=== PATIENT | male | born 1965 | race African-American/Black ===

== ENCOUNTER 2018-11-13 15:30 | Inpatient (IN) | payer OTHER, SELFPAY ==
[~2018-11-13] VITALS: Ht 170.2 cm; Wt 82.8 kg
[~2018-11-13 15:30] MED LIST: ASCO500C9 PO; ASPI81TA50 PO; ATOR20TA58 PO; GLYB5TAB3 PO; INSULIN LISPRO 300 UNITS/3 ML INSULN.PEN. SQ SCH; LISI10TA2 PO; LOSA1TAB25 PO; MELO15TA23 PO; METF10007 PO; METO25TA4 PO; NITR0.4T SL; OMEG1CAP38 PO; RANI150T2 PO; TICA90TA PO
--- NOTE | 2018-11-13 15:56 | PHYS DOC ---
Past Medical History Past Medical History: Diabetes-Type II, Hypertension, ID Past Surgical History: Angioplasty, Other Additional Past Surgical Histo: shulder, knee, hernia,CARDAIC STENTS Alcohol Use: None Drug Use: None Adult General Chief Complaint Chief Complaint: CHEST PAIN HPI HPI Patient is a 53 year old male presented to ER today for evaluation of substernal chest pain that been off and on since last Saturday. Jaquelin also complaintS of bilateral flank pain. Patient denies any trouble breathing. Patient has history of hypertension, diabetic, coronary artery disease. Patient had several CARDIAC stentS placed last year. Patient denies any recent operation or any recent travel. She denies any fever, no nausea vomiting. Review of Systems Review of Systems Constitutional: Denies fever or chills [] Eyes: Denies change in visual acuity, redness, or eye pain [] HENT: Denies nasal congestion or sore throat [] Respiratory: Denies cough or shortness of breath [] Cardiovascular: No additional information not addressed in HPI [] GI: POSITIVE FOR abdominal pain, NO nausea, vomiting, bloody stools or diarrhea [] : Denies dysuria or hematuria [] Musculoskeletal: Denies back pain or joint pain [] Integument: Denies rash or skin lesions [] Neurologic: Denies headache, focal weakness or sensory changes [] Endocrine: Denies polyuria or polydipsia [] All other systems were reviewed and found to be within normal limits, except as documented in this note. Current Medications Current Medications Current Medications Medications (Trade) Dose Ordered Sig/[facility] Start Time Stop Time Status Last Admin Dose Admin Aspirin (Marj Aspirin) 325 mg 1X ONCE 11/13/18 16:00 11/13/18 16:01 DC 11/13/18 16:08 325 MG Nitroglycerin (Nitrostat) 0.4 mg PRN Q5MIN PRN 11/13/18 16:00 11/14/18 15:59 Allergies Allergies Allergies Coded Allergies Type Severity Reaction Last Updated Verified iodine Allergy Intermediate Rash 12/07/17 Yes povidone-iodine Allergy Intermediate Rash 12/14/17 Yes Physical Exam Physical Exam Constitutional: Well developed, well nourished, no acute distress, non-toxic appearance. [] HENT: Normocephalic, atraumatic, bilateral external ears normal, oropharynx moist, no oral exudates, nose normal. [] Eyes: PERRLA, EOMI, conjunctiva normal, no discharge. [] Neck: Normal range of motion, no tenderness, supple, no stridor. [] Cardiovascular:Heart rate regular rhythm, no murmur [] Lungs & Thorax: Bilateral breath sounds clear to auscultation [] Abdomen: Bowel sounds normal, soft, no tenderness, no masses, no pulsatile masses. [] Skin: Warm, dry, no erythema, no rash. [] Back: No tenderness, no CVA tenderness. [] Extremities: No tenderness, no cyanosis, no clubbing, ROM intact, no edema. [] Neurologic: Alert and oriented X 3, normal motor function, normal sensory function, no focal deficits noted. [] Psychologic: Affect normal, judgement normal, mood normal. [] Current Patient Data Vital Signs Vital Signs Date Time Temp Pulse Resp B/P (MAP) Pulse Ox O2 Delivery O2 Flow Rate FiO2 11/13/18 15:35 99.0 77 16 215/92 (133) 97 Room Air 99.0 Lab Values Laboratory Tests Test 11/13/18 15:48 11/13/18 15:50 White Blood Count 7.8 x10^3/uL (4.0-11.0) Red Blood Count 4.28 x10^6/uL (4.30-5.70) L Hemoglobin 12.7 g/dL (13.0-17.5) L Hematocrit 38.0 % (39.0-53.0) L Mean Corpuscular Volume 89 fL (79-100) Mean Corpuscular Hemoglobin 30 pg (25-35) Mean Corpuscular Hemoglobin Concent 34 g/dL (31-37) Red Cell Distribution Width 13.1 % (11.5-14.5) Platelet Count 239 x10^3/uL (140-400) Neutrophils (%) (Auto) 70 % (31-73) Lymphocytes (%) (Auto) 18 % (24-48) L Monocytes (%) (Auto) 8 % (0-9) Eosinophils (%) (Auto) 3 % (0-3) Basophils (%) (Auto) 1 % (0-3) Neutrophils # (Auto) 5.5 x10^3uL (1.8-7.7) Lymphocytes # (Auto) 1.4 x10^3/uL (1.0-4.8) Monocytes # (Auto) 0.6 x10^3/uL (0.0-1.1) Eosinophils # (Auto) 0.2 x10^3/uL (0.0-0.7) Basophils # (Auto) 0.1 x10^3/uL (0.0-0.2) Prothrombin Time 12.2 SEC (11.7-14.0) Prothrombin Time INR 0.9 (0.8-1.1) Sodium Level 138 mmol/L (136-145) Potassium Level 4.3 mmol/L (3.5-5.1) Chloride Level 103 mmol/L (98-107) Carbon Dioxide Level 24 mmol/L (21-32) Anion Gap 11 (6-14) Blood Urea Nitrogen 27 mg/dL (8-26) H Creatinine 1.5 mg/dL (0.7-1.3) H Estimated GFR ([place]-Gault) 58.8 BUN/Creatinine Ratio 18 (6-20) Glucose Level 190 mg/dL (70-99) H Calcium Level 10.2 mg/dL (8.5-10.1) H Magnesium Level 1.8 mg/dL (1.8-2.4) Total Bilirubin 0.3 mg/dL (0.2-1.0) Aspartate Amino Transferase (AST) 22 U/L (15-37) Alanine Aminotransferase (ALT) 23 U/L (16-63) Alkaline Phosphatase 72 U/L (46-116) Creatine Kinase 383 U/L (39-308) H Creatine Kinase MB (Mass) 1.9 ng/mL (0.0-3.6) Creatine Kinase MB Relative Index 0.5 % (0-4) Troponin I Quantitative 0.036 ng/mL (0.000-0.055) AP-Txl-P-Type Natriuretic Peptide 172 pg/mL (0-124) H Total Protein 8.2 g/dL (6.4-8.2) Albumin 4.2 g/dL (3.4-5.0) Albumin/Globulin Ratio 1.1 (1.0-1.7) Lipase 716 U/L (73-393) H Urine Collection Type Void Urine Color Yellow Urine Clarity Clear Urine pH 5.5 Urine Specific [place] 1.010 Urine Protein Negative mg/dL (NEG-TRACE) Urine Glucose (UA) Negative mg/dL (NEG) Urine Ketones (Stick) Negative mg/dL (NEG) Urine Blood Negative (NEG) Urine Nitrite Negative (NEG) Urine Bilirubin Negative (NEG) Urine Urobilinogen Dipstick 0.2 mg/dL (0.2 mg/dL) Urine Leukocyte Esterase Negative (NEG) Urine RBC Rare /HPF (0-2) Urine WBC 0 /HPF (0-4) Urine Squamous Epithelial Cells Few /LPF Urine Bacteria 0 /HPF (0-FEW) Laboratory Tests 11/13/18 15:48 Laboratory Tests 11/13/18 15:48 EKG EKG EKG WAS READ BY THIS PHYSICIAN AT 1540, RATE OF 72 BPM, NO STEMI. SINUS RHYTHM. [] Radiology/Procedures Radiology/Procedures [] Impressions: [address] [address] IMAGING REPORT Signed PATIENT: CLAUDIA SCHULTE ACCOUNT: [id number] : 1965 LOCATION: ER AGE: 53 SEX: M EXAM STATUS: PRE ER ORD. PHYSICIAN: HOMA LEBRON DO REASON: LEFT SIDED CHEST PAIN SINCE SUN., HX HTN, ID, DIABETES PROCEDURE: PORTABLE CHEST 1V Portable chest, 11/13/2018: HISTORY: Left-sided chest pain Comparison is made to a study from 12/13/2017. The heart size and pulmonary vascularity are normal. No pulmonary infiltrate is seen. There is no evidence of pleural fluid. IMPRESSION: No acute cardiopulmonary abnormality is detected. Electronically signed by: Bebo Connelly MD (11/13/2018 4:14 PM) [facility] DICTATED and SIGNED BY: BEBO CONNELLY MD DATE: 11/13/[address] [address] IMAGING REPORT Signed PATIENT: CLAUDIA SCHULTE ACCOUNT: [id number] : 1965 LOCATION: ER AGE: 53 SEX: M EXAM STATUS: REG ER ORD. PHYSICIAN: HOMA LEBRON DO REASON: ABDOMINAL PAIN bilateral flank pain PROCEDURE: CT ABDOMEN PELVIS WO CONTRAST EXAM: Abdomen and pelvis CT without intravenous contrast. HISTORY: Flank pain. TECHNIQUE: Computed tomographic images of the abdomen and pelvis were obtained without contrast. Multiplanar reformatting was performed. *One or more of the following individualized dose reduction techniques were utilized for this examination: 1. Automated exposure control. 2. Adjustment of the mA and/or kV according to patient size. 3. Use of iterative reconstruction technique. COMPARISON: None. FINDINGS: Evaluation of the lower thorax demonstrates no infiltrate or pleural effusion. The heart is normal in size. There is coronary artery atherosclerosis. No hepatic lesion is seen. The gallbladder, pancreas and adrenal glands are unremarkable. The spleen is upper normal in size, within normal limits for body habitus. There is no evidence of nephroureterolithiasis. There is no evidence of hydronephrosis. There are multiple hypodense lesions within both kidneys which are too small to characterize in the absence of contrast. The attenuation of the largest lesion measuring 1.8 cm within the right kidney favors a cyst. There is no appendicitis. There is moderate colonic stool. There is colonic diverticulosis. There is no diverticulitis. The bladder is unremarkable. The prostate is unremarkable. There is aortobiiliac atherosclerosis. There is no lymphadenopathy. There is degenerative change involving the spine. No suspicious osseous lesion is seen. IMPRESSION: 1. No acute abdominal or pelvic finding. 2. No evidence of nephrolithiasis or obstructive uropathy. 3. Hypodense lesions within both kidneys, the largest of which are likely cysts and the small cyst of which are too small to characterize in the absence of contrast. Renal sonography may be useful for characterization. 4. Colonic diverticulosis. Electronically signed by: Almita Abel MD (11/13/2018 5:32 PM) [facility] DICTATED and SIGNED BY: ALMITA ABEL MD DATE: 11/13/18 4438 Course & Med Decision Making Course & Med Decision Making Pertinent Labs and Imaging studies reviewed. (See chart for details) [] Dragon Disclaimer Dragon Disclaimer This electronic medical record was generated, in whole or in part, using a voice recognition dictation system. Departure Departure Impression: Primary Impression: Chest pain Disposition: ADMITTED INPATIENT Admitting Physician: Swetha Bergeron Condition: STABLE Referrals: OLIVA NOBLE MD (PCP) HOMA LEBRON DO November 13, 2018 15:56
[2018-11-13] MEDS ORDERED: ASPIRIN 325 MG TABLET PO ONE (16:00)
[2018-11-13] MEDS ORDERED: NITROGLYCERIN SUBLINGUAL 0.4 MG BOTTLE OF 25. SL PRN ×2 (16:00→21:00)
--- NOTE | 2018-11-13 16:02 | EKG ---
[facility] [address] [place] [address] Test Date: 2018-11-13 Test Time: 15:38:49 Pat Name: CLAUDIA SCHULTE Department: Room: Gender: M Manager Economic: : 1965 Requested By: HOMA LEBRON Order Number: [id number] Reading MD: Damián Salinas Measurements Intervals [place] Rate: 72 P: 29 MT: 180 QRS: -23 QRSD: 82 T: -29 QT: 336 QTc: 373 Interpretive Statements SINUS RHYTHM LEFT ATRIAL ABNORMALITY LEFTWARD AXIS T ABNORMALITY IN ANTEROLATERAL LEADS INFEROLATERAL LEADS ABNORMAL ECG Electronically Signed On 12-11-2018 13:14:04 CDT by Damián Salinas
[2018-11-13 16:03] LABS: BASO # 0.1 x10^3/uL (0.0-0.2); BASO % 1 % (0-3); EOS # 0.2 x10^3/uL (0.0-0.7); EOS % 3 % (0-3); HEMOGLOBIN 12.7 g/dL (13.0-17.5); LYMPH # 1.4 x10^3/uL (1.0-4.8); LYMPH % 18 % (24-48); MEAN CORPUSCULAR HEMOGLOBIN 30 pg (25-35); MEAN CORPUSCULAR HGB CONC 34 g/dL (31-37); MEAN CORPUSCULAR VOLUME 89 fL (79-100); MONO # 0.6 x10^3/uL (0.0-1.1); MONO % 8 % (0-9); NEUT # 5.5 x10^3uL (1.8-7.7); NEUT % 70 % (31-73); PLATELET COUNT 239 x10^3/uL (140-400); RED BLOOD COUNT 4.28 x10^6/uL (4.30-5.70); RED CELL DISTRIBUTION WIDTH 13.1 % (11.5-14.5); WHITE BLOOD COUNT 7.8 x10^3/uL (4.0-11.0)
[2018-11-13 16:14] LABS: PROTHROMBIN TIME PATIENT 12.2 SEC (11.7-14.0)
--- NOTE | 2018-11-13 16:16 | RAD ---
Portable chest, 11/13/2018: HISTORY: Left-sided chest pain Comparison is made to a study from 12/13/2017. The heart size and pulmonary vascularity are normal. No pulmonary infiltrate is seen. There is no evidence of pleural fluid. IMPRESSION: No acute cardiopulmonary abnormality is detected. Electronically signed by: Bebo Connelly MD (11/13/2018 4:14 PM) [facility]
[2018-11-13 16:19] LABS: CALCIUM 10.2 mg/dL (8.5-10.1); CREATININE 1.5 mg/dL (0.7-1.3); GFR 58.8; POTASSIUM 4.3 mmol/L (3.5-5.1)
[2018-11-13 16:23] LABS: BILIRUBIN,URINE NEGATIVE (NEG); CLARITY,URINE CLEAR; COLOR,URINE YELLOW; NITRITE,URINE NEGATIVE (NEG); PH,URINE 5.5; PROTEIN,URINE NEGATIVE (NEG-TRACE); UROBILINOGEN,URINE 0.2 mg/dL (0.2 mg/dL)
[2018-11-13 16:26] LABS: ALBUMIN 4.2 g/dL (3.4-5.0); ALBUMIN/GLOBULIN RATIO 1.1 (1.0-1.7); MAGNESIUM 1.8 mg/dL (1.8-2.4); TOTAL BILIRUBIN 0.3 mg/dL (0.2-1.0); TOTAL PROTEIN 8.2 g/dL (6.4-8.2)
[2018-11-13 16:32] LABS: RBC,URINE RARE /HPF (0-2); WBC,URINE 0 /HPF (0-4)
[2018-11-13 16:33] LABS: BACTERIA,URINE 0 /HPF (0-FEW); SQUAMOUS EPITHELIAL CELL,UR FEW /LPF
--- NOTE | 2018-11-13 17:35 | RAD ---
EXAM: Abdomen and pelvis CT without intravenous contrast. HISTORY: Flank pain. TECHNIQUE: Computed tomographic images of the abdomen and pelvis were obtained without contrast. Multiplanar reformatting was performed. *One or more of the following individualized dose reduction techniques were utilized for this examination: 1. Automated exposure control. 2. Adjustment of the mA and/or kV according to patient size. 3. Use of iterative reconstruction technique. COMPARISON: None. FINDINGS: Evaluation of the lower thorax demonstrates no infiltrate or pleural effusion. The heart is normal in size. There is coronary artery atherosclerosis. No hepatic lesion is seen. The gallbladder, pancreas and adrenal glands are unremarkable. The spleen is upper normal in size, within normal limits for body habitus. There is no evidence of nephroureterolithiasis. There is no evidence of hydronephrosis. There are multiple hypodense lesions within both kidneys which are too small to characterize in the absence of contrast. The attenuation of the largest lesion measuring 1.8 cm within the right kidney favors a cyst. There is no appendicitis. There is moderate colonic stool. There is colonic diverticulosis. There is no diverticulitis. The bladder is unremarkable. The prostate is unremarkable. There is aortobiiliac atherosclerosis. There is no lymphadenopathy. There is degenerative change involving the spine. No suspicious osseous lesion is seen. IMPRESSION: 1. No acute abdominal or pelvic finding. 2. No evidence of nephrolithiasis or obstructive uropathy. 3. Hypodense lesions within both kidneys, the largest of which are likely cysts and the small cyst of which are too small to characterize in the absence of contrast. Renal sonography may be useful for characterization. 4. Colonic diverticulosis. Electronically signed by: Almita Lake MD (11/13/2018 5:32 PM) [facility]
[2018-11-13] MEDS ORDERED: ONDANSETRON PF 4 MG/2 ML VIAL. IV PRN (17:45)
--- NOTE | 2018-11-13 19:01 | PDOC1 ---
History and Physical Date of Admission: Date of Admission DATE: 11/13/18 TIME: 18:59 Chief Complaint: Problems: (1) Coronary artery disease (2) PAD (peripheral artery disease) (3) Chest pain Chief Complain: Chest pain History of Present Illness: HPI: Patient is a pleasant middle-aged male who has 5 previous coronary stents He presents with chest pain he states it feels like his previous coronary pain Rates that 10 out 10 Has some associated nausea Spell occurring since last week He tried increasing his home meds but that didn't work Describes as agonizing I discussed the case with ER physician wanted with patient and consult cardiology Past Medical/Surgical History: PMH/PSH: Diabetes hypertension 5 previous coronary stents Allergies: Allergies: Coded Allergies: iodine (Verified Allergy, Intermediate, Rash, 12/07/17) topical iodine only povidone-iodine (Verified Allergy, Intermediate, Rash, 12/14/17) topical iodine only Family History: Family History: CAD Social History: Social Hisoty: He doesn't drink smoke or take drugs he is Current Medications: Current Medications Current Medications Aspirin (Marj Aspirin) 325 mg 1X ONCE PO Last administered on 11/13/18at 16:08; Start 11/13/18 at 16:00; Stop 11/13/18 at 16:01; Status DC Nitroglycerin (Nitrostat) 0.4 mg PRN Q5MIN PRN SL CP RATING > 1/10; Start 11/13/18 at 16:00; Stop 11/14/18 at 15:59 Ondansetron HCl (Zofran) 4 mg PRN Q8HRS PRN IV NAUSEA/VOMITING; Start 11/13/18 at 17:45; Stop 11/14/18 at 17:44 Active Scripts Active Lisinopril 10 Mg Tablet 10 Mg PO DAILY 30 Days Metoprolol Tartrate 25 Mg Tablet 25 Mg PO BID 30 Days Nitrostat (Nitroglycerin) 0.4 Mg Tab.subl 0.4 Mg SL PRN Q5MIN PRN 30 Days Atorvastatin Calcium 20 Mg Tablet 20 Mg PO QHS 30 Days Brilinta (Ticagrelor) 90 Mg Tablet 90 Mg PO BID 30 Days Reported Vitamin C (Ascorbic Acid) 500 Mg Capsule 500 Mg PO [place] 3 Fish Oil Softgel ([place]-3 Fatty Acids/Fish Oil) 1 Each Capsule.dr 1 Each PO DAILY Metformin Hcl 1,000 Mg Tablet 1,000 Mg PO BIDWMEALS Aspir-Low (Aspirin) 81 Mg Tablet. 1 Tab PO DAILY Glyburide 5 Mg Tablet 5 Mg PO DAILY Ranitidine Hcl 150 Mg Tablet 150 Mg PO DAILY ROS: Review of Systems Review of System REVIEW OF SYSTEMS: GENERAL: Denies weakness SKIN: No bruising, hair changes or rashes. EYES: No blurred, double or loss of vision. NOSE AND THROAT: No history of nosebleeds, hoarseness or sore throat. HEART: He complains of chest pain LUNGS: Denies cough, hemoptysis, wheezing or shortness of breath. GASTROINTESTINAL: He complains of abdominal pain GENITOURINARY: No history of frequency, urgency, hesitancy or nocturia. NEUROLOGIC: Denies history of numbness, tingling, tremor or weakness. PSYCHIATRIC: No history of panic, anxiety or depression. ENDOCRINE: No history of heat or cold intolerance, polyuria or polydipsia. EXTREMITIES: Denies muscle weakness, joint pain, pain on walking or stiffness. Physical Exam: Vital Signs: Vital Signs Date Time Temp Pulse Resp B/P (MAP) Pulse Ox O2 Delivery O2 Flow Rate FiO2 11/13/18 17:09 74 24 157/77 (103) 98 Room Air 11/13/18 15:35 99.0 99.0 Physcial Exam: GEN.: No apparent distress. Alert and oriented. HEENT: Head is normocephalic, atraumatic NECK: Supple, no JVD LUNGS: Clear to auscultation without rhonchi or wheezing HEART: RRR, S1, S2 present. Peripheral pulses intact ABDOMEN: Soft, nontender. Positive bowel sounds no organomegaly EXTREMITIES: Without any cyanosis, clubbing, or edema. Pedal pulses intact NEUROLOGIC: Normal speech, normal tone. A&O x 3 PSYCHIATRIC: Normal affect, normal mood. Stable SKIN: No ulcerations or rashes VASCULAR: Good capillary refill Labs: Labs: Laboratory Tests Test 11/13/18 15:48 11/13/18 15:50 White Blood Count 7.8 x10^3/uL (4.0-11.0) Red Blood Count 4.28 x10^6/uL (4.30-5.70) Hemoglobin 12.7 g/dL (13.0-17.5) Hematocrit 38.0 % (39.0-53.0) Mean Corpuscular Volume 89 fL (79-100) Mean Corpuscular Hemoglobin 30 pg (25-35) Mean Corpuscular Hemoglobin Concent 34 g/dL (31-37) Red Cell Distribution Width 13.1 % (11.5-14.5) Platelet Count 239 x10^3/uL (140-400) Neutrophils (%) (Auto) 70 % (31-73) Lymphocytes (%) (Auto) 18 % (24-48) Monocytes (%) (Auto) 8 % (0-9) Eosinophils (%) (Auto) 3 % (0-3) Basophils (%) (Auto) 1 % (0-3) Neutrophils # (Auto) 5.5 x10^3uL (1.8-7.7) Lymphocytes # (Auto) 1.4 x10^3/uL (1.0-4.8) Monocytes # (Auto) 0.6 x10^3/uL (0.0-1.1) Eosinophils # (Auto) 0.2 x10^3/uL (0.0-0.7) Basophils # (Auto) 0.1 x10^3/uL (0.0-0.2) Prothrombin Time 12.2 SEC (11.7-14.0) Prothromb Time International Ratio 0.9 (0.8-1.1) Sodium Level 138 mmol/L (136-145) Potassium Level 4.3 mmol/L (3.5-5.1) Chloride Level 103 mmol/L (98-107) Carbon Dioxide Level 24 mmol/L (21-32) Anion Gap 11 (6-14) Blood Urea Nitrogen 27 mg/dL (8-26) Creatinine 1.5 mg/dL (0.7-1.3) Estimated GFR (Cockcroft-Gault) 58.8 BUN/Creatinine Ratio 18 (6-20) Glucose Level 190 mg/dL (70-99) Calcium Level 10.2 mg/dL (8.5-10.1) Magnesium Level 1.8 mg/dL (1.8-2.4) Total Bilirubin 0.3 mg/dL (0.2-1.0) Aspartate Amino Transf (AST/SGOT) 22 U/L (15-37) Alanine Aminotransferase (ALT/SGPT) 23 U/L (16-63) Alkaline Phosphatase 72 U/L (46-116) Creatine Kinase 383 U/L (39-308) Creatine Kinase MB (Mass) 1.9 ng/mL (0.0-3.6) Creatine Kinase MB Relative Index 0.5 % (0-4) Troponin I Quantitative 0.036 ng/mL (0.000-0.055) GG-Iez-L-Type Natriuretic Peptide 172 pg/mL (0-124) Total Protein 8.2 g/dL (6.4-8.2) Albumin 4.2 g/dL (3.4-5.0) Albumin/Globulin Ratio 1.1 (1.0-1.7) Lipase 716 U/L (73-393) Urine Collection Type Void Urine Color Yellow Urine Clarity Clear Urine pH 5.5 Urine Specific [place] 1.010 Urine Protein Negative mg/dL (NEG-TRACE) Urine Glucose (UA) Negative mg/dL (NEG) Urine Ketones (Stick) Negative mg/dL (NEG) Urine Blood Negative (NEG) Urine Nitrite Negative (NEG) Urine Bilirubin Negative (NEG) Urine Urobilinogen Dipstick 0.2 mg/dL (0.2 mg/dL) Urine Leukocyte Esterase Negative (NEG) Urine RBC Rare /HPF (0-2) Urine WBC 0 /HPF (0-4) Urine Squamous Epithelial Cells Few /LPF Urine Bacteria 0 /HPF (0-FEW) Laboratory Tests Test 11/13/18 15:48 11/13/18 15:50 White Blood Count 7.8 x10^3/uL (4.0-11.0) Red Blood Count 4.28 x10^6/uL (4.30-5.70) Hemoglobin 12.7 g/dL (13.0-17.5) Hematocrit 38.0 % (39.0-53.0) Mean Corpuscular Volume 89 fL (79-100) Mean Corpuscular Hemoglobin 30 pg (25-35) Mean Corpuscular Hemoglobin Concent 34 g/dL (31-37) Red Cell Distribution Width 13.1 % (11.5-14.5) Platelet Count 239 x10^3/uL (140-400) Neutrophils (%) (Auto) 70 % (31-73) Lymphocytes (%) (Auto) 18 % (24-48) Monocytes (%) (Auto) 8 % (0-9) Eosinophils (%) (Auto) 3 % (0-3) Basophils (%) (Auto) 1 % (0-3) Neutrophils # (Auto) 5.5 x10^3uL (1.8-7.7) Lymphocytes # (Auto) 1.4 x10^3/uL (1.0-4.8) Monocytes # (Auto) 0.6 x10^3/uL (0.0-1.1) Eosinophils # (Auto) 0.2 x10^3/uL (0.0-0.7) Basophils # (Auto) 0.1 x10^3/uL (0.0-0.2) Prothrombin Time 12.2 SEC (11.7-14.0) Prothromb Time International Ratio 0.9 (0.8-1.1) Sodium Level 138 mmol/L (136-145) Potassium Level 4.3 mmol/L (3.5-5.1) Chloride Level 103 mmol/L (98-107) Carbon Dioxide Level 24 mmol/L (21-32) Anion Gap 11 (6-14) Blood Urea Nitrogen 27 mg/dL (8-26) Creatinine 1.5 mg/dL (0.7-1.3) Estimated GFR (Cockcroft-Gault) 58.8 BUN/Creatinine Ratio 18 (6-20) Glucose Level 190 mg/dL (70-99) Calcium Level 10.2 mg/dL (8.5-10.1) Magnesium Level 1.8 mg/dL (1.8-2.4) Total Bilirubin 0.3 mg/dL (0.2-1.0) Aspartate Amino Transf (AST/SGOT) 22 U/L (15-37) Alanine Aminotransferase (ALT/SGPT) 23 U/L (16-63) Alkaline Phosphatase 72 U/L (46-116) Creatine Kinase 383 U/L (39-308) Creatine Kinase MB (Mass) 1.9 ng/mL (0.0-3.6) Creatine Kinase MB Relative Index 0.5 % (0-4) Troponin I Quantitative 0.036 ng/mL (0.000-0.055) YC-Ifk-D-Type Natriuretic Peptide 172 pg/mL (0-124) Total Protein 8.2 g/dL (6.4-8.2) Albumin 4.2 g/dL (3.4-5.0) Albumin/Globulin Ratio 1.1 (1.0-1.7) Lipase 716 U/L (73-393) Urine Collection Type Void Urine Color Yellow Urine Clarity Clear Urine pH 5.5 Urine Specific [place] 1.010 Urine Protein Negative mg/dL (NEG-TRACE) Urine Glucose (UA) Negative mg/dL (NEG) Urine Ketones (Stick) Negative mg/dL (NEG) Urine Blood Negative (NEG) Urine Nitrite Negative (NEG) Urine Bilirubin Negative (NEG) Urine Urobilinogen Dipstick 0.2 mg/dL (0.2 mg/dL) Urine Leukocyte Esterase Negative (NEG) Urine RBC Rare /HPF (0-2) Urine WBC 0 /HPF (0-4) Urine Squamous Epithelial Cells Few /LPF Urine Bacteria 0 /HPF (0-FEW) Images: Images Portable chest, 11/13/2018: HISTORY: Left-sided chest pain Comparison is made to a study from 12/13/2017. The heart size and pulmonary vascularity are normal. No pulmonary infiltrate is seen. There is no evidence of pleural fluid. IMPRESSION: No acute cardiopulmonary abnormality is detected. Assessment/Plan Assessment/Plan Chest pain in a middle-aged male who has known coronary disease suspect possible recurrent acute coronary event Plan Cardiac monitoring consult cardiology Serial enzymes Serial EKGs Daily aspirin Home meds Frequent labs DVT prophylaxis Full code Prognosis guarded MAGDA QUEZADA III DO November 13, 2018 19:01
--- NOTE | 2018-11-13 19:15 | NUR ---
The patient, CLAUDIA SCHULTE, 53 y/o, M admitted by MAGDA QUEZADA III, DO, was given written information regarding hospital policies, unit procedures and contact persons. ORIENTED PT AND TO UNIT, C[employer]ICE REPRESENTATIVE [employer], POC, VITAL TIMES. HAD HOME MEDS IN HER PHONE RECONCILED MEDS AND DR QUEZADA APPROVED. Valuables were checked and DOCUMENTED IN [facility] .LCRN
[2018-11-13 19:18] VITALS: BP 179/81
[2018-11-13] MEDS ORDERED: GABA-585 PO (20:30)
[2018-11-13] MEDS ORDERED: LOSA100T14 PO (20:32)
[2018-11-13] MEDS ORDERED: GLYB5TAB3 PO (20:33)
[2018-11-13] MEDS ORDERED: ACET325T9 PO (20:35)
[2018-11-13] MEDS ORDERED: ACETAMINOPHEN 325 MG TABLET. PO PRN (21:00)
[2018-11-13] MEDS ORDERED: DEXTROSE 50% 25 GM / 50ML DISP.SYRIN. IV PRN (21:00)
[2018-11-13] MEDS: TICAGRELOR 90 MG TABLET. PO SCH (22:08)
[2018-11-13] MEDS: METOPROLOL TART IMMED RELEASE 25 MG TABLET. PO SCH (22:09)
[2018-11-13] MEDS: GABAPENTIN 100 MG CAPSULE. PO SCH (22:09)
[2018-11-13 23:16] VITALS: BP 148/80
[2018-11-14 03:25] VITALS: BP 152/86
[2018-11-14] MEDS ORDERED: ACETAMINOPHEN 325 MG TABLET. PO PRN (03:30)
[2018-11-14 07:00] VITALS: BP 138/80
[2018-11-14] MEDS: INSULIN LISPRO 300 UNITS/3 ML INSULN.PEN. SQ SCH ×2 (07:30→11:30)
[2018-11-14] MEDS ORDERED: glyBURIDE 5 MG TABLET PO SCH (07:30)
[2018-11-14] MEDS ORDERED: metFORMIN 500 MG TABLET PO SCH (08:00)
[2018-11-14] MEDS ORDERED: INSULIN LISPRO 300 UNITS/3 ML INSULN.PEN. SQ SCH (08:00)
[2018-11-14] MEDS ORDERED: FAMOTIDINE 20 MG TABLET. PO SCH (09:00)
[2018-11-14] MEDS ORDERED: ASPIRIN ENTERIC COATED 81 MG TABLET.DR. PO SCH (09:00)
[2018-11-14] MEDS ORDERED: LOSARTAN POTASSIUM 50 MG TABLET. PO SCH (09:00)
--- NOTE | 2018-11-14 09:35 | PDOC2 ---
JETHRO LAGOS SPECIAL INVESTIGATION UNIT INVESTIGATOR 11/14/18 0935: CARDIAC CONSULT DATE OF CONSULT Date of Consult DATE: 11/14/18 TIME: 08:53 REASON FOR CONSULT Reason for Consult: Chest pain REFERRING PHYSICIAN Referring Physician: Jesse SOURCE Source: Chart review, Patient HISTORY OF PRESENT ILLNESS HISTORY OF PRESENT ILLNESS This is a pleasant 53 yo male admitted for complains of chest pain and left flank pain. Reports that in the last 2 days he has been having left chest dull achy pain which is relieved sometimes with rubbing. Rate it 7 at 0-10 scale at times. No associated SOA, palpitations, nausea, diaphoresis. No VELAZQUEZ nor exertional CP. He does however has some bilateral shoulder problems requiring surgical repair in the past. No known cervical issues. No falls, injury, or MVA. Hhe has been having left flank pain to which the CT did not show any acute changes. Both the chest and the lower back pain are reproducible with palpation and for his left shoulder as well with ROM. PAST MEDICAL HISTORY Past Medical History Cardiovascular: CAD, HTN, OR, Hyperlipidemia Pulmonary: No pertinent hx CENTRAL NERVOUS SYSTEM: Other (No pertinent history) GI: GERD Heme/Onc: No pertinent hx Musculoskeletal: Osteoarthritis Rheumatologic: No pertinent hx Infectious disease: No pertinent hx ENT: No pertinent hx Renal/: No pertinent hx Endocrine: Diabetes Dermatology: No pertinent hx PAST SURGICAL HISTORY Past Surgical History Arthroscopy (bilateral clavicle repair and knee meniscus repair), Hernia Repair (umbilical wih mesh), Other (PCI/stents), LLE open revascularization 01/2018 FAMILY HISTORY Family History: Hypertension SOCIAL HISTORY Smoke: No ALCOHOL: occassional Drugs: None Lives: with Family CURRENT MEDICATIONS CURRENT MEDICATIONS Current Medications Medications (Trade) Dose Ordered Sig/Neeta Route PRN Reason Start Time Stop Time Status Last Admin Dose Admin Aspirin (Marj Aspirin) 325 mg 1X ONCE PO 11/13/18 16:00 11/13/18 16:01 DC 11/13/18 16:08 Acetaminophen (Tylenol) 325 mg PRN Q6HRS PRN PO MILD PAIN 11/13/18 21:00 11/14/18 03:25 DC 11/14/18 03:21 Gabapentin (Neurontin) 100 mg TID PO 11/13/18 21:00 11/13/18 22:09 Metoprolol Tartrate (Lopressor) 25 mg BID PO 11/13/18 21:00 11/13/18 22:09 Ticagrelor (Brilinta) 90 mg BID PO 11/13/18 21:00 11/13/18 22:08 ALLERGIES ALLERGIES: Coded Allergies: iodine (Verified Allergy, Intermediate, Rash, 12/07/17) topical iodine only povidone-iodine (Verified Allergy, Intermediate, Rash, 12/14/17) topical iodine only ROS Review of System 14 point ROS evaluated with pertinent positives noted per HPI PHYSICAL EXAM General: Alert, Oriented X3, Cooperative, No acute distress HEENT: Atraumatic, Mucous membr. moist/pink Lungs: Clear to auscultation, Normal air movement Heart: Regular rate (SR), Normal S1, Normal S2, No murmurs Abdomen: Soft, No tenderness Extremities: No cyanosis, No edema Skin: No breakdown, No significant lesion Neuro: Normal speech, Sensation intact Psych/Mental Status: Mental status NL, Mood NL MUSCULOSKELETAL: Osteoarthritic changes both hands VITALS VITALS Vital Signs Date Time Temp Pulse Resp B/P (MAP) Pulse Ox O2 Delivery O2 Flow Rate FiO2 11/14/18 08:13 Room Air 11/14/18 07:00 98.5 70 18 138/80 (99) 95 98.5 LABS Lab: Laboratory Tests Test 11/13/18 15:48 11/13/18 15:50 11/13/18 21:12 11/14/18 07:07 White Blood Count 7.8 x10^3/uL (4.0-11.0) Red Blood Count 4.28 x10^6/uL (4.30-5.70) Hemoglobin 12.7 g/dL (13.0-17.5) Hematocrit 38.0 % (39.0-53.0) Mean Corpuscular Volume 89 fL (79-100) Mean Corpuscular Hemoglobin 30 pg (25-35) Mean Corpuscular Hemoglobin Concent 34 g/dL (31-37) Red Cell Distribution Width 13.1 % (11.5-14.5) Platelet Count 239 x10^3/uL (140-400) Neutrophils (%) (Auto) 70 % (31-73) Lymphocytes (%) (Auto) 18 % (24-48) Monocytes (%) (Auto) 8 % (0-9) Eosinophils (%) (Auto) 3 % (0-3) Basophils (%) (Auto) 1 % (0-3) Neutrophils # (Auto) 5.5 x10^3uL (1.8-7.7) Lymphocytes # (Auto) 1.4 x10^3/uL (1.0-4.8) Monocytes # (Auto) 0.6 x10^3/uL (0.0-1.1) Eosinophils # (Auto) 0.2 x10^3/uL (0.0-0.7) Basophils # (Auto) 0.1 x10^3/uL (0.0-0.2) Prothrombin Time 12.2 SEC (11.7-14.0) Prothromb Time International Ratio 0.9 (0.8-1.1) Sodium Level 138 mmol/L (136-145) Potassium Level 4.3 mmol/L (3.5-5.1) Chloride Level 103 mmol/L (98-107) Carbon Dioxide Level 24 mmol/L (21-32) Anion Gap 11 (6-14) Blood Urea Nitrogen 27 mg/dL (8-26) Creatinine 1.5 mg/dL (0.7-1.3) Estimated GFR (Cockcroft-Gault) 58.8 BUN/Creatinine Ratio 18 (6-20) Glucose Level 190 mg/dL (70-99) Calcium Level 10.2 mg/dL (8.5-10.1) Magnesium Level 1.8 mg/dL (1.8-2.4) Total Bilirubin 0.3 mg/dL (0.2-1.0) Aspartate Amino Transf (AST/SGOT) 22 U/L (15-37) Alanine Aminotransferase (ALT/SGPT) 23 U/L (16-63) Alkaline Phosphatase 72 U/L (46-116) Creatine Kinase 383 U/L (39-308) Creatine Kinase MB (Mass) 1.9 ng/mL (0.0-3.6) Creatine Kinase MB Relative Index 0.5 % (0-4) Troponin I Quantitative 0.036 ng/mL (0.000-0.055) MP-Zxr-B-Type Natriuretic Peptide 172 pg/mL (0-124) Total Protein 8.2 g/dL (6.4-8.2) Albumin 4.2 g/dL (3.4-5.0) Albumin/Globulin Ratio 1.1 (1.0-1.7) Lipase 716 U/L (73-393) Urine Collection Type Void Urine Color Yellow Urine Clarity Clear Urine pH 5.5 Urine Specific [place] 1.010 Urine Protein Negative mg/dL (NEG-TRACE) Urine Glucose (UA) Negative mg/dL (NEG) Urine Ketones (Stick) Negative mg/dL (NEG) Urine Blood Negative (NEG) Urine Nitrite Negative (NEG) Urine Bilirubin Negative (NEG) Urine Urobilinogen Dipstick 0.2 mg/dL (0.2 mg/dL) Urine Leukocyte Esterase Negative (NEG) Urine RBC Rare /HPF (0-2) Urine WBC 0 /HPF (0-4) Urine Squamous Epithelial Cells Few /LPF Urine Bacteria 0 /HPF (0-FEW) Glucose (Fingerstick) 207 mg/dL (70-99) 171 mg/dL (70-99) ECHOCARDIOGRAM ECHOCARDIOGRAM <Conclusion> Basal inferior wall hypokinesis. The Ejection Fraction is 55-60%. Mild mitral regurgitation. Trace tricuspid regurgitation. There is no evidence of significant pericardial effusion. DATE: 12/09/17 1400 HEART CATH HEART CATH Findings.PCI Left circumflex vessel with a 70-75% lesion. Identified on a previous angiogram. <Conclusion> Successful drug-coated stent placement to a 70-75% left circumflex lesion with a 0% residual. DATE: 12/09/17 1706 Findings. PCI Hemodynamics. LV 170/8, 16, aortic root 164/70. Coronaries. Left main. The left main was a moderate size vessel with no lesions. Left anterior descending. The LAD was a moderate size vessel with normal distribution. It had mid lesions in the 15% range. Left circumflex. The left circumflex is a moderate size vessel. The proximal vessel had a 70-75% long lesion. Right coronary artery. The right coronary had a proximal occlusion. <Conclusion> ST elevated myocardial infarction secondary to an occluded proximal right coronary artery. 3 drug-eluting stents placed to the right coronary artery with a residual lesion of 0% and good distal flow. 70-75% left circumflex lesion. Mild disease in the LAD. DATE: 12/09/17 1654 ASSESSMENT/PLAN ASSESSMENT/PLAN 1. Atypical Chest pain/flank pain: reproducible pain. trops normal. EKG SR without acute changes. CT no acute changes. suspect MSK 2. CAD: 12/2017 STEMI with stents to RCA and LCx 3. PAD: 01/2018 LLE open revascularization, clinically stable. 4. HTN: initially labile possibly induced by pain, now controlled 5. DM2/HLP: reported prior A1C <6 6. suspect CKD: Cr at 1.5 suspect stage 2-3. CT revealed renal cysts 7. Elevated lipase Recommendations 1. Continue with secondary prevention, Restart home BP meds. 2. ASA/Brilinta 3. Repeat troponin and EKG. TTE today. 4. Ischemic workup possibly MPI as an outpt pending tests. ROS COLLIER MD 11/14/18 1044: CARDIAC CONSULT ASSESSMENT/PLAN ASSESSMENT/PLAN Patient seen and examined. Agree with HAND BINDER STRIPPER's assessment and plan. Chest pain with atypical features and most probably musculoskeletal Myocardial infarction has been ruled out Check 2-D echo to assess LV function and rule out wall motion abnormalities Plan ischemic evaluation as an outpatient Thank you for your consultation JETHRO LAGOS APRN November 14, 2018 09:35 ROS COLLIER MD November 14, 2018 10:44
[2018-11-14 10:33] LABS: CALCIUM 10.2 mg/dL (8.5-10.1); CREATININE 1.4 mg/dL (0.7-1.3); GFR 63.7; POTASSIUM 4.3 mmol/L (3.5-5.1)
[2018-11-14 11:00] VITALS: BP 138/81
--- NOTE | 2018-11-14 11:04 | CARD ---
MR#: [id number] Date of Study: 11/14/2018 Ordering Physician: JETHRO LAGOS, Referring Physician: MAGDA QUEZADA Tech: Yamileth Rea APPROVED REPORT EXAM: Two-dimensional and M-mode echocardiogram with Doppler and color Doppler. Other Information Quality : GoodHR: 64bpm Rhythm : NSR INDICATION Chest Pain RISK FACTORS Hypertension Diabetes 2D DIMENSIONS RVDd2.7 (2.9-3.5cm)Left Atrium(2D)3.4 (1.6-4.0cm) IVSd1.2 (0.7-1.1cm)Aortic Root(2D)2.9 (2.0-3.7cm) LVDd4.6 (3.9-5.9cm)PWd1.1 (0.7-1.1cm) LVDs2.8 (2.5-4.0cm)LVEF(%)69.0 (>50%) Aortic Valve AoV Peak Fausto.116.0cm/sAoV VTI22.3cm AO Peak GR.5.4mmHgLVOT Peak Fausto.86.0cm/s LVOT VTI 19.88cmAO Mean GR.3mmHg Mitral Valve MV E Uxtlgswd77.9cm/sMV DECEL [id number] MV A Krzexwtz11.9cm/sMV NIT86so E/A Ratio1.0MVA (PHT)3.12cm2 TDI E/Lateral E'8.5E/Medial E'10.0 Pulmonary Valve PV Peak Hxshkjci83.0cm/sPV Peak Grad.3mmHg Tricuspid Valve RAP [id number] Pulmonary Vein S1 Icjbitmz74.7cm/sD2 Ajikdxyb71.5cm/s PVa [id number] LEFT VENTRICLE The left ventricle is normal size. There is moderate concentric left ventricular hypertrophy. The lef t ventricular systolic function is normal and the ejection fraction is within normal range. The Eject ion Fraction is 55-60%. There is normal LV segmental wall motion. Transmitral Doppler flow pattern is Grade II-pseudonormal filling dynamics. RIGHT VENTRICLE The right ventricle is borderline dilated. There is normal right ventricular wall thickness. The righ t ventricular systolic function is normal. ATRIA The left atrium size is normal. The right atrium size is normal. The interatrial septum is intact wit h no evidence for an atrial septal defect or patent foramen ovale as noted on 2-D or Doppler imaging. AORTIC VALVE The aortic valve is normal in structure and function. Doppler and Color Flow revealed no significant aortic regurgitation. There is no significant aortic valvular stenosis. MITRAL VALVE The mitral valve is thickened but opens well. There is no evidence of mitral valve prolapse. There is no mitral valve stenosis. Doppler and Color-flow revealed trace mitral regurgitation. TRICUSPID VALVE The tricuspid valve is normal in structure and function. Doppler and Color Flow revealed trace tricus pid regurgitation. There is no tricuspid valve stenosis. PULMONIC VALVE The pulmonic valve is not well visualized. Doppler and Color Flow revealed no pulmonic valvular regur gitation. There is no pulmonic valvular stenosis. GREAT VESSELS The aortic root is normal in size. The IVC is normal in size and collapses >50% with inspiration. PERICARDIAL EFFUSION There is no evidence of significant pericardial effusion. Critical Notification Critical Value: No <Conclusion> The left ventricular systolic function is normal and the ejection fraction is within normal range. Th e Ejection Fraction is 55-60%. There is normal LV segmental wall motion. There is moderate concentric left ventricular hypertrophy. Signed by : Floyd Lee, Electronically Approved : 11/14/2018 11:04:39
--- NOTE | 2018-11-14 11:28 | NUR ---
SS following for discharge planning. SS reviewed pt chart. Pt is from home with spouse and is currently on room air. Discharge order on the chart.
--- NOTE | 2018-11-14 11:30 | PDOC ---
[facility] [facility] PROGRESS NOTE Chief Complaint Chief Complaint Chest pain CAD Prior CO Hyperlipidemia HTN DM GERD Osteoarthritis History of Present Illness History of Present Illness Patient seen and examined Discussed with Cardio and Sierra Patient denies any more chest pain Troponins not elevated, awaiting Echo and Abd US prior to Discharge Vitals Vitals Vital Signs Date Time Temp Pulse Resp B/P (MAP) Pulse Ox O2 Delivery O2 Flow Rate FiO2 11/14/18 11:00 98.9 64 18 138/81 (100) 96 Room Air 98.9 Physical Exam General: Alert, Oriented X3, Cooperative, No acute distress Heart: Regular rate (SR), Normal S1, Normal S2, No murmurs Abdomen: Soft, No tenderness Extremities: No cyanosis, No edema Skin: No breakdown, No significant lesion Labs LABS Laboratory Tests Test 11/13/18 15:48 11/13/18 15:50 11/13/18 21:12 11/14/18 07:07 White Blood Count 7.8 x10^3/uL (4.0-11.0) Red Blood Count 4.28 x10^6/uL (4.30-5.70) Hemoglobin 12.7 g/dL (13.0-17.5) Hematocrit 38.0 % (39.0-53.0) Mean Corpuscular Volume 89 fL (79-100) Mean Corpuscular Hemoglobin 30 pg (25-35) Mean Corpuscular Hemoglobin Concent 34 g/dL (31-37) Red Cell Distribution Width 13.1 % (11.5-14.5) Platelet Count 239 x10^3/uL (140-400) Neutrophils (%) (Auto) 70 % (31-73) Lymphocytes (%) (Auto) 18 % (24-48) Monocytes (%) (Auto) 8 % (0-9) Eosinophils (%) (Auto) 3 % (0-3) Basophils (%) (Auto) 1 % (0-3) Neutrophils # (Auto) 5.5 x10^3uL (1.8-7.7) Lymphocytes # (Auto) 1.4 x10^3/uL (1.0-4.8) Monocytes # (Auto) 0.6 x10^3/uL (0.0-1.1) Eosinophils # (Auto) 0.2 x10^3/uL (0.0-0.7) Basophils # (Auto) 0.1 x10^3/uL (0.0-0.2) Prothrombin Time 12.2 SEC (11.7-14.0) Prothromb Time International Ratio 0.9 (0.8-1.1) Sodium Level 138 mmol/L (136-145) Potassium Level 4.3 mmol/L (3.5-5.1) Chloride Level 103 mmol/L (98-107) Carbon Dioxide Level 24 mmol/L (21-32) Anion Gap 11 (6-14) Blood Urea Nitrogen 27 mg/dL (8-26) Creatinine 1.5 mg/dL (0.7-1.3) Estimated GFR (Cockcroft-Gault) 58.8 BUN/Creatinine Ratio 18 (6-20) Glucose Level 190 mg/dL (70-99) Calcium Level 10.2 mg/dL (8.5-10.1) Magnesium Level 1.8 mg/dL (1.8-2.4) Total Bilirubin 0.3 mg/dL (0.2-1.0) Aspartate Amino Transf (AST/SGOT) 22 U/L (15-37) Alanine Aminotransferase (ALT/SGPT) 23 U/L (16-63) Alkaline Phosphatase 72 U/L (46-116) Creatine Kinase 383 U/L (39-308) Creatine Kinase MB (Mass) 1.9 ng/mL (0.0-3.6) Creatine Kinase MB Relative Index 0.5 % (0-4) Troponin I Quantitative 0.036 ng/mL (0.000-0.055) PD-Fmo-B-Type Natriuretic Peptide 172 pg/mL (0-124) Total Protein 8.2 g/dL (6.4-8.2) Albumin 4.2 g/dL (3.4-5.0) Albumin/Globulin Ratio 1.1 (1.0-1.7) Lipase 716 U/L (73-393) Urine Collection Type Void Urine Color Yellow Urine Clarity Clear Urine pH 5.5 Urine Specific [place] 1.010 Urine Protein Negative mg/dL (NEG-TRACE) Urine Glucose (UA) Negative mg/dL (NEG) Urine Ketones (Stick) Negative mg/dL (NEG) Urine Blood Negative (NEG) Urine Nitrite Negative (NEG) Urine Bilirubin Negative (NEG) Urine Urobilinogen Dipstick 0.2 mg/dL (0.2 mg/dL) Urine Leukocyte Esterase Negative (NEG) Urine RBC Rare /HPF (0-2) Urine WBC 0 /HPF (0-4) Urine Squamous Epithelial Cells Few /LPF Urine Bacteria 0 /HPF (0-FEW) Glucose (Fingerstick) 207 mg/dL (70-99) 171 mg/dL (70-99) Test 11/14/18 08:10 Sodium Level 140 mmol/L (136-145) Potassium Level 4.3 mmol/L (3.5-5.1) Chloride Level 104 mmol/L (98-107) Carbon Dioxide Level 24 mmol/L (21-32) Anion Gap 12 (6-14) Blood Urea Nitrogen 26 mg/dL (8-26) Creatinine 1.4 mg/dL (0.7-1.3) Estimated GFR (Cockcroft-Gault) 63.7 Glucose Level 189 mg/dL (70-99) Calcium Level 10.2 mg/dL (8.5-10.1) Magnesium Level 2.0 mg/dL (1.8-2.4) Troponin I Quantitative 0.046 ng/mL (0.000-0.055) Triglycerides Level 84 mg/dL (0-150) Cholesterol Level 201 mg/dL (0-200) LDL Cholesterol, Calculated 144 mg/dL (0-100) VLDL Cholesterol, Calculated 17 mg/dL (0-40) Non-HDL Cholesterol Calculated 161 mg/dL (0-129) HDL Cholesterol 40 mg/dL (40-60) Cholesterol/HDL Ratio 5.0 Thyroid Stimulating Hormone (TSH) 0.963 uIU/mL (0.358-3.74) Review of Systems Review of Systems Patient denies swelling of hands or feet Patient denies FERNANDEZ Assessment and Plan Assessmemt and Plan Assessment: Chest pain CAD Prior CO Hyperlipidemia HTN DM GERD Osteoarthritis Plan: Cardiac monitoring Awaiting Echo Awaiting Abdominal US Hold Metformin for 2 days Serial enzymes Serial EKGs Daily aspirin Home meds Labs DVT prophylaxis Full code Discharge today if specialists agree after Abdominal US and Echo Comment Review of Relevant I have reviewed the following items oriana (where applicable) has been applied. Labs Laboratory Tests Test 11/13/18 15:48 11/13/18 15:50 11/13/18 21:12 5/10/19 07:07 White Blood Count 7.8 x10^3/uL (4.0-11.0) Red Blood Count 4.28 x10^6/uL (4.30-5.70) Hemoglobin 12.7 g/dL (13.0-17.5) Hematocrit 38.0 % (39.0-53.0) Mean Corpuscular Volume 89 fL (79-100) Mean Corpuscular Hemoglobin 30 pg (25-35) Mean Corpuscular Hemoglobin Concent 34 g/dL (31-37) Red Cell Distribution Width 13.1 % (11.5-14.5) Platelet Count 239 x10^3/uL (140-400) Neutrophils (%) (Auto) 70 % (31-73) Lymphocytes (%) (Auto) 18 % (24-48) Monocytes (%) (Auto) 8 % (0-9) Eosinophils (%) (Auto) 3 % (0-3) Basophils (%) (Auto) 1 % (0-3) Neutrophils # (Auto) 5.5 x10^3uL (1.8-7.7) Lymphocytes # (Auto) 1.4 x10^3/uL (1.0-4.8) Monocytes # (Auto) 0.6 x10^3/uL (0.0-1.1) Eosinophils # (Auto) 0.2 x10^3/uL (0.0-0.7) Basophils # (Auto) 0.1 x10^3/uL (0.0-0.2) Prothrombin Time 12.2 SEC (11.7-14.0) Prothromb Time International Ratio 0.9 (0.8-1.1) Sodium Level 138 mmol/L (136-145) Potassium Level 4.3 mmol/L (3.5-5.1) Chloride Level 103 mmol/L (98-107) Carbon Dioxide Level 24 mmol/L (21-32) Anion Gap 11 (6-14) Blood Urea Nitrogen 27 mg/dL (8-26) Creatinine 1.5 mg/dL (0.7-1.3) Estimated GFR (Cockcroft-Gault) 58.8 BUN/Creatinine Ratio 18 (6-20) Glucose Level 190 mg/dL (70-99) Calcium Level 10.2 mg/dL (8.5-10.1) Magnesium Level 1.8 mg/dL (1.8-2.4) Total Bilirubin 0.3 mg/dL (0.2-1.0) Aspartate Amino Transf (AST/SGOT) 22 U/L (15-37) Alanine Aminotransferase (ALT/SGPT) 23 U/L (16-63) Alkaline Phosphatase 72 U/L (46-116) Creatine Kinase 383 U/L (39-308) Creatine Kinase MB (Mass) 1.9 ng/mL (0.0-3.6) Creatine Kinase MB Relative Index 0.5 % (0-4) Troponin I Quantitative 0.036 ng/mL (0.000-0.055) HU-Wgk-Y-Type Natriuretic Peptide 172 pg/mL (0-124) Total Protein 8.2 g/dL (6.4-8.2) Albumin 4.2 g/dL (3.4-5.0) Albumin/Globulin Ratio 1.1 (1.0-1.7) Lipase 716 U/L (73-393) Urine Collection Type Void Urine Color Yellow Urine Clarity Clear Urine pH 5.5 Urine Specific [place] 1.010 Urine Protein Negative mg/dL (NEG-TRACE) Urine Glucose (UA) Negative mg/dL (NEG) Urine Ketones (Stick) Negative mg/dL (NEG) Urine Blood Negative (NEG) Urine Nitrite Negative (NEG) Urine Bilirubin Negative (NEG) Urine Urobilinogen Dipstick 0.2 mg/dL (0.2 mg/dL) Urine Leukocyte Esterase Negative (NEG) Urine RBC Rare /HPF (0-2) Urine WBC 0 /HPF (0-4) Urine Squamous Epithelial Cells Few /LPF Urine Bacteria 0 /HPF (0-FEW) Glucose (Fingerstick) 207 mg/dL (70-99) 171 mg/dL (70-99) Test 11/14/18 08:10 Sodium Level 140 mmol/L (136-145) Potassium Level 4.3 mmol/L (3.5-5.1) Chloride Level 104 mmol/L (98-107) Carbon Dioxide Level 24 mmol/L (21-32) Anion Gap 12 (6-14) Blood Urea Nitrogen 26 mg/dL (8-26) Creatinine 1.4 mg/dL (0.7-1.3) Estimated GFR (Cockcroft-Gault) 63.7 Glucose Level 189 mg/dL (70-99) Calcium Level 10.2 mg/dL (8.5-10.1) Magnesium Level 2.0 mg/dL (1.8-2.4) Troponin I Quantitative 0.046 ng/mL (0.000-0.055) Triglycerides Level 84 mg/dL (0-150) Cholesterol Level 201 mg/dL (0-200) LDL Cholesterol, Calculated 144 mg/dL (0-100) VLDL Cholesterol, Calculated 17 mg/dL (0-40) Non-HDL Cholesterol Calculated 161 mg/dL (0-129) HDL Cholesterol 40 mg/dL (40-60) Cholesterol/HDL Ratio 5.0 Thyroid Stimulating Hormone (TSH) 0.963 uIU/mL (0.358-3.74) Laboratory Tests Test 11/13/18 15:48 11/13/18 15:50 11/13/18 21:12 11/14/18 07:07 White Blood Count 7.8 x10^3/uL (4.0-11.0) Red Blood Count 4.28 x10^6/uL (4.30-5.70) Hemoglobin 12.7 g/dL (13.0-17.5) Hematocrit 38.0 % (39.0-53.0) Mean Corpuscular Volume 89 fL (79-100) Mean Corpuscular Hemoglobin 30 pg (25-35) Mean Corpuscular Hemoglobin Concent 34 g/dL (31-37) Red Cell Distribution Width 13.1 % (11.5-14.5) Platelet Count 239 x10^3/uL (140-400) Neutrophils (%) (Auto) 70 % (31-73) Lymphocytes (%) (Auto) 18 % (24-48) Monocytes (%) (Auto) 8 % (0-9) Eosinophils (%) (Auto) 3 % (0-3) Basophils (%) (Auto) 1 % (0-3) Neutrophils # (Auto) 5.5 x10^3uL (1.8-7.7) Lymphocytes # (Auto) 1.4 x10^3/uL (1.0-4.8) Monocytes # (Auto) 0.6 x10^3/uL (0.0-1.1) Eosinophils # (Auto) 0.2 x10^3/uL (0.0-0.7) Basophils # (Auto) 0.1 x10^3/uL (0.0-0.2) Prothrombin Time 12.2 SEC (11.7-14.0) Prothromb Time International Ratio 0.9 (0.8-1.1) Sodium Level 138 mmol/L (136-145) Potassium Level 4.3 mmol/L (3.5-5.1) Chloride Level 103 mmol/L (98-107) Carbon Dioxide Level 24 mmol/L (21-32) Anion Gap 11 (6-14) Blood Urea Nitrogen 27 mg/dL (8-26) Creatinine 1.5 mg/dL (0.7-1.3) Estimated GFR (Cockcroft-Gault) 58.8 BUN/Creatinine Ratio 18 (6-20) Glucose Level 190 mg/dL (70-99) Calcium Level 10.2 mg/dL (8.5-10.1) Magnesium Level 1.8 mg/dL (1.8-2.4) Total Bilirubin 0.3 mg/dL (0.2-1.0) Aspartate Amino Transf (AST/SGOT) 22 U/L (15-37) Alanine Aminotransferase (ALT/SGPT) 23 U/L (16-63) Alkaline Phosphatase 72 U/L (46-116) Creatine Kinase 383 U/L (39-308) Creatine Kinase MB (Mass) 1.9 ng/mL (0.0-3.6) Creatine Kinase MB Relative Index 0.5 % (0-4) Troponin I Quantitative 0.036 ng/mL (0.000-0.055) EZ-Cgn-P-Type Natriuretic Peptide 172 pg/mL (0-124) Total Protein 8.2 g/dL (6.4-8.2) Albumin 4.2 g/dL (3.4-5.0) Albumin/Globulin Ratio 1.1 (1.0-1.7) Lipase 716 U/L (73-393) Urine Collection Type Void Urine Color Yellow Urine Clarity Clear Urine pH 5.5 Urine Specific [place] 1.010 Urine Protein Negative mg/dL (NEG-TRACE) Urine Glucose (UA) Negative mg/dL (NEG) Urine Ketones (Stick) Negative mg/dL (NEG) Urine Blood Negative (NEG) Urine Nitrite Negative (NEG) Urine Bilirubin Negative (NEG) Urine Urobilinogen Dipstick 0.2 mg/dL (0.2 mg/dL) Urine Leukocyte Esterase Negative (NEG) Urine RBC Rare /HPF (0-2) Urine WBC 0 /HPF (0-4) Urine Squamous Epithelial Cells Few /LPF Urine Bacteria 0 /HPF (0-FEW) Glucose (Fingerstick) 207 mg/dL (70-99) 171 mg/dL (70-99) Test 11/14/18 08:10 Sodium Level 140 mmol/L (136-145) Potassium Level 4.3 mmol/L (3.5-5.1) Chloride Level 104 mmol/L (98-107) Carbon Dioxide Level 24 mmol/L (21-32) Anion Gap 12 (6-14) Blood Urea Nitrogen 26 mg/dL (8-26) Creatinine 1.4 mg/dL (0.7-1.3) Estimated GFR (Cockcroft-Gault) 63.7 Glucose Level 189 mg/dL (70-99) Calcium Level 10.2 mg/dL (8.5-10.1) Magnesium Level 2.0 mg/dL (1.8-2.4) Troponin I Quantitative 0.046 ng/mL (0.000-0.055) Triglycerides Level 84 mg/dL (0-150) Cholesterol Level 201 mg/dL (0-200) LDL Cholesterol, Calculated 144 mg/dL (0-100) VLDL Cholesterol, Calculated 17 mg/dL (0-40) Non-HDL Cholesterol Calculated 161 mg/dL (0-129) HDL Cholesterol 40 mg/dL (40-60) Cholesterol/HDL Ratio 5.0 Thyroid Stimulating Hormone (TSH) 0.963 uIU/mL (0.358-3.74) Medications Current Medications Aspirin (Marj Aspirin) 325 mg 1X ONCE PO Last administered on 11/13/18at 16:08; Start 11/13/18 at 16:00; Stop 11/13/18 at 16:01; Status DC Nitroglycerin (Nitrostat) 0.4 mg PRN Q5MIN PRN SL CP RATING > 1/10; Start 11/13/18 at 16:00; Stop 11/13/18 at 20:58; Status DC Ondansetron HCl (Zofran) 4 mg PRN Q8HRS PRN IV NAUSEA/VOMITING; Start 11/13/18 at 17:45; Stop 11/14/18 at 17:44 Acetaminophen (Tylenol) 325 mg PRN Q6HRS PRN PO MILD PAIN Last administered on 11/14/18at 03:21; Start 11/13/18 at 21:00; Stop 11/14/18 at 03:25; Status DC Aspirin (Ecotrin) 81 mg DAILY PO ; Start 11/14/18 at 09:00 Gabapentin (Neurontin) 100 mg TID PO Last administered on 11/13/18at 22:09; Start 11/13/18 at 21:00 Glyburide (Diabeta) 5 mg BIDBFRMEAL PO ; Start 11/14/18 at 07:30 Metoprolol Tartrate (Lopressor) 25 mg BID PO Last administered on 11/13/18at 22:09; Start 11/13/18 at 21:00 Nitroglycerin (Nitrostat) 0.4 mg PRN Q5MIN PRN SL CHEST PAIN; Start 11/13/18 at 21:00 Ticagrelor (Brilinta) 90 mg BID PO Last administered on 11/13/18at 22:08; Start 11/13/18 at 21:00 Losartan Potassium (Cozaar) 100 mg DAILY PO ; Start 11/14/18 at 09:00 Metformin HCl (Glucophage) 1,000 mg BIDWMEALS PO ; Start 11/14/18 at 08:00 Famotidine (Pepcid) 20 mg DAILY PO ; Start 11/14/18 at 09:00 Insulin Human Lispro (HumaLOG) 0-7 UNITS TIDWMEALS SQ ; Start 11/14/18 at 08:00; Stop 11/14/18 at 08:00; Status DC Dextrose (Dextrose 50%-Water Syringe) 12.5 gm PRN Q15MIN PRN IV SEE COMMENTS; Start 11/13/18 at 21:00 Insulin Human Lispro (HumaLOG) 0-7 UNITS QIDACHS SQ ; Start 11/13/18 at 08:00; Stop 11/13/18 at 22:24; Status DC Insulin Human Lispro (HumaLOG) 0-7 UNITS QIDACHS SQ ; Start 11/14/18 at 07:30 Acetaminophen (Tylenol) 650 mg PRN Q6HRS PRN PO MILD PAIN; Start 11/14/18 at 03:30 Atorvastatin Calcium (Lipitor) 20 mg QHS PO ; Start 11/14/18 at 21:00 Active Scripts Active Metoprolol Tartrate 25 Mg Tablet 25 Mg PO BID 30 Days Nitrostat (Nitroglycerin) 0.4 Mg Tab.subl 0.4 Mg SL PRN Q5MIN PRN 30 Days Brilinta (Ticagrelor) 90 Mg Tablet 90 Mg PO BID 30 Days Reported Tylenol (Acetaminophen) 325 Mg Tablet 325 Mg PO PRN Q6HRS PRN Glyburide 5 Mg Tablet 1 Tab PO BIDBFRMEAL Losartan Potassium 100 Mg Tablet 100 Mg PO DAILY Gabapentin (Gabapentin) 100 Mg Capsule 100 Mg PO TID Aspir-Low (Aspirin) 81 Mg Tablet. 1 Tab PO DAILY Ranitidine Hcl 150 Mg Tablet 150 Mg PO DAILY Vitals/I & O Vital Sign - Last 24 Hours 11/13/18 11/13/18 11/13/18 11/13/18 15:35 16:06 16:09 16:39 Temp 99.0 99.0 Pulse 77 73 70 70 Resp 16 20 20 24 B/P (MAP) 215/92 (133) 151/75 (100) 150/79 (102) 150/79 (102) Pulse Ox 97 97 97 96 O2 Delivery Room Air Room Air Room Air Room Air 11/13/18 11/13/18 11/13/18 11/13/18 17:09 19:18 22:09 23:16 Temp 99.0 99.0 99.0 99.0 Pulse 74 71 71 70 Resp 24 16 16 B/P (MAP) 157/77 (103) 179/81 (113) 179/81 148/80 (102) Pulse Ox 98 97 98 O2 Delivery Room Air Room Air Room Air 11/14/18 11/14/18 11/14/18 11/14/18 03:25 07:00 08:13 11:00 Temp 97.6 98.5 98.9 97.6 98.5 98.9 Pulse 74 70 64 Resp 16 18 18 B/P (MAP) 152/86 (108) 138/80 (99) 138/81 (100) Pulse Ox 99 95 96 O2 Delivery Room Air Room Air Room Air Room Air Intake and Output 11/13/18 11/13/18 11/14/18 15:00 23:00 07:00 Intake Total 300 ml 600 ml Output Total 325 ml 1325 ml Balance -25 ml -725 ml MAGDA QUEZADA III DO November 14, 2018 11:30
[2018-11-14] MEDS: TICAGRELOR 90 MG TABLET. PO SCH (12:13)
[2018-11-14] MEDS: GABAPENTIN 100 MG CAPSULE. PO SCH (12:13)
[2018-11-14] MEDS: METOPROLOL TART IMMED RELEASE 25 MG TABLET. PO SCH (12:14)
[2018-11-14 12:15] VITALS: BP 138/81
--- NOTE | 2018-11-14 12:30 | RAD ---
Right upper quadrant abdominal ultrasound, 11/14/2018: HISTORY: Right upper quadrant pain The gallbladder is within normal limits in size. There is no sonographic evidence of cholelithiasis. The gallbladder wall is not thickened. The common hepatic duct is of normal caliber. There is no evidence of a hepatic mass. The visualized portion of the pancreatic body is unremarkable. Other portions of the pancreas were obscured by overlying bowel. There appear to be 2 small cysts in the right kidney. IMPRESSION: 1. No significant gallbladder abnormality is detected. 2. Small right renal cysts. Electronically signed by: Bebo Connelly MD (11/14/2018 12:26 PM) [facility], [place]
--- NOTE | 2018-11-14 12:45 | EKG ---
[facility] [address] [place] [address] Test Date: 2018-11-14 Test Time: 12:36:23 Pat Name: CLAUDIA SCHULTE Department: Room: 208 1 Gender: M Master Of Ceremonies: : 1965 Requested By: JETHRO LAGOS Order Number: [id number] Reading MD: Floyd Lee MD Measurements Intervals [place] Rate: 64 P: 27 TX: 174 QRS: 29 QRSD: 86 T: 20 QT: 364 QTc: 375 Interpretive Statements SINUS RHYTHM NON-SPECIFIC ST/T CHANGES Electronically Signed On 12-11-2018 14:37:39 CDT by Floyd Lee MD
--- NOTE | 2018-11-14 13:25 | NUR ---
Discharge Note: CHELE SCHULTE SARASOTA Discharge instructions and discharge home medications reviewed with Patient and a copy given. All questions have been answered and understanding verbalized.
--- NOTE | 2018-11-14 17:16 | DS ---
DATE OF DISCHARGE: 11/14/2018 ADMISSION DIAGNOSES: Chest pain with known coronary artery disease and previous 5 stents. DISCHARGE DIAGNOSIS: Probable atypical chest pain (we are awaiting final clearance from Dr. Salinas, but I did discuss the case briefly with him earlier). HOSPITAL COURSE: The patient is a pleasant middle-aged male who has previous 5 stents. He came in with chest pain and abdominal pain in the flanks. Since he had previous stents, we went ahead and admitted the patient. We checked serial enzymes, serial EKGs. They are just barely slightly high at 0.04. This morning, I saw him and examined him, he wants to go home. His really wants to get him home. We do have an echo pending. We will await for that. As previously stated, I discussed the case with Dr. Salinas and Nelia Rosas, his nurse practitioner. If the echo looks reasonable, we probably will get him home this afternoon. It should be noted that his lipase is little high at 760. I am also going to get an ultrasound of his abdomen to make sure he does not have any symptomatic gallstones, but the CAT scan did not show anything initially. DISPOSITION: Home. ACTIVITY: As tolerated. DIET: Cardiac. MEDICATIONS: We will resume his previous home medications. FOLLOWUP: Follow up with his PCP in a week. TOTAL TIME: 32 minutes. MAGDA QUEZADA DO DR: JUVE/lori JOB#: [id number] / [id number]
[2018-11-14] MEDS ORDERED: ATORVASTATIN CALCIUM 20 MG TABLET PO SCH (21:00)
== END 2018-11-14 13:25 | disposition home or self-care (01) | DRG 313 ==
LOC: ER 15:30 → 2 NORTH 17:30
PROVIDERS: ADMIT Internal Medicine; ATTEND Internal Medicine
DX: R07.89 Other chest pain (principal); I10 Essential (primary) hypertension; I25.2 Old myocardial infarction; I25.10 Atherosclerotic heart disease of native coronary artery without angina pectoris; K21.9 Gastro-esophageal reflux disease without esophagitis; M19.90 Unspecified osteoarthritis, unspecified site; E11.51 Type 2 diabetes mellitus with diabetic peripheral angiopathy without gangrene; E78.5 Hyperlipidemia, unspecified; Z95.5 Presence of coronary angioplasty implant and graft; Z88.3 Allergy status to other anti-infective agents; Z91.041 Radiographic dye allergy status; Z82.49 Family history of ischemic heart disease and other diseases of the circulatory system
CPT/HCPCS: 36415; 71045; 74176; 76705; 80048; 80053; 80061; 81001; 82550; 82553; 82962; 83690; 83735; 83880; 84443; 84484; 85025; 85610; 93005; 93306; J1815; 99285-25

== ENCOUNTER → 2019-01-01 | Outpatient (CLI) | payer OTHER ==
[~2019-01-01] MED LIST changes: +ACET325T9 PO; +GABA-585 PO; -INSULIN LISPRO 300 UNITS/3 ML INSULN.PEN. SQ SCH; +LOSA100T14 PO; +REGADENOSON 0.4 MG/5 ML DISP.SYRIN. IV ONE
--- NOTE | 2019-01-01 13:05 | RAD ---
MR#: [id number] Date of Study: 01/01/2019 Ordering Physician: MONIKA PEÑA, Referring Physician: CASSIE WRIGHT Tech: ITZEL House, ARRT (R) (N) APPROVED REPORT Test Type: Pharmacological Stress Nurse/Tech: Brenda Valdes R.N. Test Indications: CAD Cardiac History: LA 12/23,htn,DM Medications: See Electronic Medical Record Medical History: See Electronic Medical RecordSee Electronic Medical Record Resting ECG: SR w/ inverted T waves in leads II,III,AVF,V3-V6 Resting Heart Rate: 61 bpm Resting Blood Pressure: 170/88mmHg Pretest Chest Pain: No chest pain Nurse/Tech Notes S1S2, lungs CTA Consent: The procedure was explained to the patient in lay terms. Informed consent was witnessed. Adolfo eout was entered into [employer]. History and Stress Test performed by RT Delta (R) (N) Pharm. Details Pharmacologic stress testing was performed using 0.4mg per 5ml of regadenoson given intravenously ove r 7-10 seconds. Stress Symptoms SOA POST EXERCISE Reason for Termination: Infusion complete Max HR: 93 bpm Max Blood Pressure: 165/80mmHg Blood Pressure response to exercise: Normal blood pressure response during stress. Heart Rate response to exercise: wnl Chest Pain: No. Arrhythmia: No. ST Change: No. INTERPRETATION Stress EKG Conclusion: No evidence of acute EKG changes. Imaging Protocol IMAGE PROTOCOL: Rest Tc-99m/stress Tc-99m 1 day Rest: Stress: Viability: Radiopharm.Tc99m UurigizrvZt11a Sestamibi Mehg58vVh 32mCi Img Date 01/01/2019 01/01/2019 Inj-Img Ctet03tng. 60min. Rest Admin Site:IV - Left HandAdministrator:RT Rea Sorenson)(N) Stress Admin Site: IV - Left HandAdministrator: RT Rea Sorenson)(N) STRESS DATA End Diast. Vol.107.0mlAv. Heart Rate71.0bpm End Syst. Vol.31.0mlCO Index BSA0.0L/min Myocardial Cilb154.0gEject. Udxrpfgc31.0% Stress Rates Pk. Fill Rate3.19EDV/secLVtime Pk. Fill 135.20msec Pk. Empty Rate3.56ESV/secLVtime Pk. Hcsjf494.06msec 1/3 Pk. Fill2.13EDV/sec Stress Scores Regional WT0.00Summed WT5.00 Regional WM0.00Summed WM1.00 The rest and stress images show normal perfusion, normal contraction and thickening. LV Perf. Quant 17 Seg. SSS0.00 17 Seg. SRS0.00 17 Seg. SDS0.00 Stress Defect Extent (% LAD)0.00Rest Defect Extent (% LAD)0.00Rev. Defect Extent (% LAD)0.00 Stress Defect Extent (% LCX) 0.00Rest Defect Extent (% LCX)0.00Rev. Defect Extent (% LCX)0.00 Stress Defect Extent (% RCA)0.00Rest Defect Extent (% RCA)0.00Rev. Defect Extent (% RCA)0.00 Stress Defect Extent (% SUBHASH)0.00Rest Defect Extent (% SUBHASH)0.00Rev. Defect Extent (% SUBHASH)0.00 Other Information Quality:Good Risk Assessment: Low Risk Conclusion 1. No evidence of acute ischemic changes on EKG. 2. Normal perfusion at stress/rest. 3. Normal EF at > 60% 4. Low risk study Signed by : Floyd Lee, Electronically Approved : 01/01/2019 13:04:21
== END ==
LOC: NM 15:33
PROVIDERS: ATTEND Internal Medicine Cardiovascular Disease
DX: I21.11 ST elevation (STEMI) myocardial infarction involving right coronary artery (principal); I25.10 Atherosclerotic heart disease of native coronary artery without angina pectoris; I10 Essential (primary) hypertension; E11.9 Type 2 diabetes mellitus without complications
CPT/HCPCS: 78452; 93017; A9500; J2785

== ENCOUNTER → 2020-05-30 | Outpatient (CLI) | payer OTHER ==
[~2020-05-30] MED LIST changes: -NITR0.4T SL; +NITR0.4T24 SL
--- NOTE | 2020-05-30 17:11 | RAD ---
MR#: [id number] Date of Study: 05/30/2020 Ordering Physician: MONIKA FOURNIER, Referring Physician: CASSIE WRIGHT Tech: RT Rea Sorenson) (N) APPROVED REPORT Test Type: Pharmacological Stress Nurse/Tech: Keiry Whaley RN Test Indications: CAD Cardiac History: CAD with stents, HTN, DM Medications: See Electronic Medical Record Medical History: See Electronic Medical Record Resting ECG: SR with PVC Resting Heart Rate: 62 bpm Resting Blood Pressure: 171/84mmHg Pretest Chest Pain: None Nurse/Tech Notes Lungs CTA, S1S2 Consent: The procedure was explained to the patient in lay terms. Informed consent was witnessed. Adolfo eout was entered into [employer]. History and Stress Test performed by MARCOS Pedroza Pharm. Details Pharmacologic stress testing was performed using 0.4mg per 5ml of regadenoson given intravenously ove r 7-10 seconds. Stress Symptoms No chest pain or symptoms. POST EXERCISE Reason for Termination: Infusion complete Max HR: 123 bpm Max Blood Pressure: 165/75mmHg Blood Pressure response to exercise: Normal blood pressure response during stress. Heart Rate response to exercise: Normal response Chest Pain: No. Arrhythmia: Yes. PVC ST Change: No. INTERPRETATION Stress EKG Conclusion: The resting EKG shows a sinus rhythm with mild nonspecific ST-T wave changes. The stress EKG showed no significant changes from baseline. No EKG evidence of stress-induced ischemia. Imaging Protocol IMAGE PROTOCOL: Rest Tc-99m/stress Tc-99m 1 day Rest: Stress: Viability: Radiopharm.Tc99m TswpsusftNf38g Sestamibi Dose10.5mCi 31.7mCi Duration 14min. 14min. Img Date 05/30/2020 05/30/2020 Inj-Img Qnmi66gka. 60min. Rest Admin Site:IV - Right HandAdministrator:RT Delta (R)(N) Stress Admin Site: IV - Right HandAdministrator: MARCOS Pedroza STRESS DATA End Diast. Vol.106.0mlAv. Heart Rate87.0bpm End Syst. Vol.37.0mlCO Index BSA0.0L/min Myocardial Giii949.0gEject. Knabzlkm02.0% Stress Rates Pk. Fill Rate4.20EDV/secLVtime Pk. Fill 200.72msec Pk. Empty Rate4.77ESV/secLVtime Pk. Ceyop168.26msec 1/3 Pk. Fill0.95EDV/sec Stress Scores Regional WT0.00Summed WT1.00 Regional WM0.00Summed WM8.00 LV Perfusion The stress images showed no significant defects. The rest images showed no significant defects. Nuclear imaging shows no reversible ischemia or infarct. Wall Motion Left ventricular systolic function is normal with an ejection fraction of greater than 70%. LV Perf. Quant 17 Seg. SSS2.00 17 Seg. SRS0.00 17 Seg. SDS2.00 Stress Defect Extent (% LAD)0.00Rest Defect Extent (% LAD)0.00Rev. Defect Extent (% LAD)0.00 Stress Defect Extent (% LCX) 15.00Rest Defect Extent (% LCX)0.00Rev. Defect Extent (% LCX)15.00 Stress Defect Extent (% RCA)0.00Rest Defect Extent (% RCA)0.00Rev. Defect Extent (% RCA)0.00 Stress Defect Extent (% SUBHASH)2.60Rest Defect Extent (% SUBHASH)0.00Rev. Defect Extent (% SUBHASH)2.60 IMPRESSION Diseased Vessels: Left Anterior Descending, Right Coronary, Left Circumflex, Left Main Conclusion 1. No EKG evidence of stress-induced ischemia. 2. Nuclear imaging shows no reversible ischemia or infarct. 3. Normal left ventricular systolic function with an ejection fraction of greater than 70%. 4. Low risk Lexiscan nuclear stress test. Signed by : Moinka Fournier MD Electronically Approved : 05/30/2020 17:11:29
== END ==
LOC: NM 11:00
PROVIDERS: ATTEND Internal Medicine Cardiovascular Disease
DX: I10 Essential (primary) hypertension (principal); I25.10 Atherosclerotic heart disease of native coronary artery without angina pectoris; Z95.5 Presence of coronary angioplasty implant and graft
CPT/HCPCS: 78452; 93017; A9500; J2785